=== PATIENT | female | born 1955 | race Caucasian/White ===

== ENCOUNTER 2017-09-13 14:18 | Emergency (ER) | payer OTHER, SELFPAY ==
[2017-09-13 14:19] VITALS: BP 147/98; PULSE 80; RESP 20; TEMP 36.7; O2SAT 98; BMI 22.1
--- NOTE | 2017-09-13 14:56 | [facility].EDGENADL ---
ED Disposition Clinical Impression: Facial pain, Malaise Bilateral ankle pain Qualifiers: Chronicity: chronic Qualified Code(s): M25.571 - Pain in right ankle and joints of right foot; M25.572 - Pain in left ankle and joints of left foot; G89.29 - Other chronic pain Disposition: Home, Self-Care Condition on Discharge: Good Additional Instructions: Follow-up with Dr. Lemon for your nasal ulcer and facial pain. See Dr. Power as scheduled. Ibuprofen for pain. Referrals: Provider,Referral, [Primary Care Provider] - - Critical Care Critical Care Time: No Attestation: On 09/13/17, the high probability of a clinically significant, sudden or life threatening deterioration of the following system(s) required my full and direct attention, intervention and personal management. The time I documented below is in addition to time spent performing reported procedures but includes the following listed in this critical care notation. Medical Decision Making - Phil Inquiry Pt receiving controlled substance: No Vital Signs: 09/13/17 14:19 Temperature 98.1 F Temperature Source Oral Pulse Rate [Right Radial] 80 Respiratory Rate 20 Blood Pressure [Right Arm] 147/98 Blood Pressure Mean [Right Arm] 114 Blood Pressure Source [Right Arm] Automatic Cuff Blood Pressure Position [Right Arm] Supine 02 Sat by Pulse Oximetry 98 Oxygen Delivery Method Room Air - Lab Data Lab Results 09/13/17 14:55: WBC 7.6, RBC 5.45 H, Hgb 16.7 H, Hct 51.0 H, MCV 93.7, MCH 30.6, MCHC 32.7, RDW 13.5, Plt Count 294, MPV 6.9 L, Neut % (Auto) 72.4, Lymph % (Auto) 21.6, Teller % (Auto) 4.6, Eos % (Auto) 1.0, Baso % (Auto) 0.3, Neut # (Auto) 5.5, Lymph # (Auto) 1.7, Teller # (Auto) 0.4, Eos # (Auto) 0.1, Baso # (Auto) 0.0 09/13/17 14:55: Sodium 141, Potassium 3.9, Chloride 108 H, Carbon Dioxide 23, Anion Gap 13.9, BUN 15, Creatinine 1.08 H, Estimated Creat Clear 51, Estimated GFR 52 L, Est GFR ( Amer) 63, Glucose 101, Calcium 9.2, Total Bilirubin 0.2, AST 14 L, ALT 23, Alkaline Phosphatase 116, Total Protein 8.0, Albumin 3.8, Globulin 4.2 H, Albumin/Globulin Ratio 0.9 L 09/13/17 14:55: Total Creatine Kinase 41, CK-MB (CK-2) < 0.5, CK-MB (CK-2) Rel Index 1.2, Troponin I < 0.02 09/13/17 16:15: Urine Color Yellow, Urine Appearance Clear, Urine pH 5.5, Ur Specific [place] 1.015, Urine Protein Negative, Urine Glucose (UA) Negative, Urine Ketones Negative, Urine Blood Negative, Urine Nitrate Negative, Urine Bilirubin Negative, Urine Urobilinogen 0.2, Ur Leukocyte Esterase Negative Result diagrams: 09/13/17 14:55 09/13/17 14:55 Orders (Tests/Meds): ORDERS Category Date Time Status Urinalysis and Microscopic Stat Lab 09/13/17 16:15 Results - Radiology Data #1 Image(s): Chest Image Reviewed: Yes I have reviewed radiologist's interpretation Preliminary Findings: Normal/NAD - ECG Data Tracing #1 EKG interpreted by Kane Shook MD: Rhythm: sinus Rate: 75 [place]: normal Ectopy: none Conduction: normal ST Segment Changes: none T Wave Changes: none Q Waves: none No evidence of acute ischemia or injury General Adult HPI - General Chief complaint: Weakness Stated complaint: pain in feet legs and head Time Seen by Provider: 09/13/17 14:50 Mode of Arrival: Ambulatory Limitations: No Limitations Description of Symptoms (Recalled from ER Triage Doc. by RN): pain in both feet and legs x 1 week , pt has been very fatiqued for months , pt has appt with her pcp on october 03. - History of Present Illness HPI narrative: The patient has multiple complaints. Primary complaint is that both of her ankles and heels hurt, right greater than left, for 1 week. It is making it hard for her to walk. She has had this recurrently for 7 or 8 years, flareups 2-4 times a year. At one point was told she might have gout. This is the worst she has had in quite some time. No swelling or redness of the joints and no fever. No injur
[2017-09-13 15:06] LABS: Basophils % 0.3 % (0.1-2.0); Eosinophils # 0.1 K/mm3 (0.0-0.4); Hemoglobin 16.7 g/dL (12.2-16.2); Lymphocytes # 1.7 K/mm3 (0.7-4.5); Lymphocytes % 21.6 K/mm3 (10-50); Mean Corpuscular HGB Conc 32.7 g/dL (31.8-35.4); Mean Corpuscular Hemoglobin 30.6 pg (27.0-31.2); Mean Corpuscular Volume 93.7 fl (81-99); Mean Platelet Volume 6.9 fl (7.4-10.4); Monocytes # 0.4 K/mm3 (0.1-1.0); Monocytes % 4.6 % (1.7-9.3); Neutrophils # 5.5 K/mm3 (1.8-7.8); Neutrophils % 72.4 % (37.0-80.0); Platelet Count 294 K/mm3 (142-424); Red Blood Count 5.45 M/mm3 (4.20-5.40); Red Cell Distribution Width 13.5 % (11.5-17.5); White Blood Count 7.6 K/mm3 (4.8-10.8)
--- NOTE | 2017-09-13 15:12 | XR_ITS ---
XR chest 2V HISTORY: ITS.REASON: cough, congestion ORDERING PHYSICIAN: Kane Shook MD PATIENT AGE: 62 years COMPARISON: None available FINDINGS: The cardiomediastinal silhouette and pulmonary vascularity are within normal limits. Calcified nodes are present in the right hilum. No lobar consolidation or collapse. Mild biapical pleural thickening. No acute bony anomalies. Calcification is present in the right lower lobe posteriorly IMPRESSION: No acute finding.
[2017-09-13 15:29] LABS: Alanine Aminotransferase 23 U/L (12-78); Albumin Level 3.8 gm/dL (3.4-5.0); Albumin/Globulin Ratio 0.9 (1.1-1.8); Alkaline Phosphatase 116 U/L (46-116); Anion Gap 13.9 mEq/L (5-15); Aspartate Amino Transferase 14 U/L (15-37); Bilirubin,Total 0.2 mg/dL (0.2-1.0); Blood Urea Nitrogen 15 mg/dL (7-18); Calcium 9.2 mg/dL (8.5-10.1); Carbon Dioxide 23 mmol/L (21.0-32.0); Chloride 108 mmol/L (98-107); Creatinine Clearance Estimated 51 mL/min (0-300); Creatinine,Serum 1.08 mg/dL (0.55-1.02); Estimated Glomerular Filt Rate 52 ml/min (>60); GFR (African American) 63 ML/MIN (>60); Globulin 4.2 gm/dl (1.3-3.2); Glucose 101 mg/dL (74-106); Potassium 3.9 mmoL/L (3.5-5.1); Sodium 141 mmol/L (136-145)
[2017-09-13 16:20] LABS: Microscopic, Urine URINE MICROSCOPIC (MICROSCOPIC)
[2017-09-13 16:29] LABS: Appearance,Urine CLEAR (Clear); Bilirubin,Urine Negative (Negative); Blood, Urine Negative (Negative); Color,Urine YELLOW (Yellow); Glucose,Urine (UA) Negative (Negative); Ketones,Urine Negative (Negative); Leukocyte Esterase,Urine Negative (Negative); Nitrate,Urine Negative (Negative); PH,Urine 5.5 (5.0-8.5); Protein,Urine Negative (Negative); Specific Gravity, Urine 1.015 (1.005-1.030); Urobilinogen,Urine 0.2 EU/dl (0.2)
[2017-09-13 16:39] LABS: Creatine Kinase 41 U/L (26-192); Troponin I < 0.02 ng/ml (0.00-0.06)
[2017-09-13 16:40] LABS: CKMB Relative Index 1.2 U/L (0-4.0); Creatine Kinase MB < 0.5 mg/ml (0.0-3.6)
[2017-09-13 16:57] VITALS: BP 127/63; PULSE 84; RESP 18; TEMP 36.8
[2017-09-13 17:30] LABS: Bacteria,Urine Trace /lpf; Squamous Epithelial Cell,Urine Occasional #/hpf (0-5)
== END 2017-09-13 17:53 | disposition home or self-care (01) ==
PROVIDERS: Emergency Provider Emergency Medicine
DX: R53.81 Other malaise (principal); R51 Headache; M25.571 Pain in right ankle and joints of right foot; M25.572 Pain in left ankle and joints of left foot; G89.29 Other chronic pain; R05 Cough
CPT/HCPCS: 71046; 80053; 81001; 82550; 82553; 84484; 85025; 93005; 96372; 99282; 99283

== ENCOUNTER → 2017-10-03 10:04 | Outpatient (REF) | payer OTHER, SELFPAY ==
[2017-10-03 14:32] LABS: Chol/HDL Ratio 6.9 (1-3.5); Cholesterol 276 mg/dL (140-200); HDL Cholesterol 40 mg/dL (29-89); LDL Cholesterol 174 mg/dL (0-130); Thyroid Stimulating Hormone 1.27 uIU/ml (0.358-3.740); Triglycerides 309 mg/dL (30-200); VLDL Cholesterol 62 mg/dL (0-40)
[2017-10-03 14:53] LABS: Erythrocyte Sedimentation Rate 16 mm/hr (0-30)
[2017-10-03 18:52] LABS: C-Reactive Protein 0.2 mg/L (0.0-0.9); Free T4 (Free Thyroxine) 0.78 ng/dl (0.76-1.46)
[2017-10-04 13:15] LABS: Anti-Centromere B Antibodies <0.2 AI (0.0-0.9); Anti-Jo-1 <0.2 AI (0.0-0.9); Anti-Smith Antibody <0.2 AI (0.0-0.9); Antichromatin Antibodies <0.2 AI (0.0-0.9); Antiscleroderma-70 Antibodies <0.2 AI (0.0-0.9); RNP Antibodies <0.2 AI (0.0-0.9); Sjogren's Anti-SS-A <0.2 AI (0.0-0.9); Sjogren's Anti-SS-B <0.2 AI (0.0-0.9)
[2017-10-04 16:34] LABS: Anti-DNA (DS) Ab Qn 1 IU/mL (0-9)
[2017-10-05 09:09] LABS: Anti-Cyclic Citrullinated Pept 4 units (0-19)
== END ==
LOC: LAB 10:04
PROVIDERS: Visit Provider Emergency Medicine
DX: M81.0 Age-related osteoporosis without current pathological fracture (principal)
CPT/HCPCS: 80061; 84439; 84443; 85651; 86038; 86140; 86200

== ENCOUNTER → 2017-10-17 11:04 | Outpatient (REF) | payer OTHER, SELFPAY ==
[2017-10-17 14:40] LABS: Alanine Aminotransferase 19 U/L (12-78); Albumin Level 3.8 gm/dL (3.4-5.0); Alkaline Phosphatase 102 U/L (46-116); Aspartate Amino Transferase 16 U/L (15-37); Bilirubin,Direct 0.1 mg/dL (0.0-0.2); Bilirubin,Total 0.2 mg/dL (0.2-1.0); Lipase 155 u/L (73-393); Total Protein,Serum 7.4 gm/dL (6.4-8.2)
== END ==
LOC: LAB 11:04
PROVIDERS: Visit Provider Emergency Medicine
DX: R53.83 Other fatigue (principal)
CPT/HCPCS: 80076; 83690